=== PATIENT | male | born 1970 | race Caucasian/White ===

== ENCOUNTER → 2017-07-08 | Outpatient (CLI) | payer OTHER | LOC: MHCPAIN 10:40 | DX: G89.29 Other chronic pain (principal); M47.27 Other spondylosis with radiculopathy, lumbosacral region | CPT/HCPCS: G0463 ==

== ENCOUNTER → 2017-11-10 | Outpatient (CLI) | payer OTHER | LOC: MHCPAIN 13:01 | DX: G89.29 Other chronic pain (principal); M47.27 Other spondylosis with radiculopathy, lumbosacral region; M53.3 Sacrococcygeal disorders, not elsewhere classified | CPT/HCPCS: G0463 ==

== ENCOUNTER → 2017-12-10 | Outpatient (CLI) | payer OTHER | LOC: MHCPAIN 09:20 | DX: M47.817 Spondylosis without myelopathy or radiculopathy, lumbosacral region (principal) ==

== ENCOUNTER → 2017-12-16 | Outpatient (CLI) | payer OTHER | LOC: MHCPAIN 13:07 | DX: G89.29 Other chronic pain (principal); M47.817 Spondylosis without myelopathy or radiculopathy, lumbosacral region; M54.16 Radiculopathy, lumbar region; M53.3 Sacrococcygeal disorders, not elsewhere classified | CPT/HCPCS: G0463 ==

== ENCOUNTER → 2018-01-07 | Outpatient (CLI) | payer OTHER | LOC: MHCPAIN 10:26 | DX: M47.817 Spondylosis without myelopathy or radiculopathy, lumbosacral region (principal) ==

== ENCOUNTER → 2018-01-15 | Outpatient (CLI) | payer OTHER | LOC: MHCPAIN 10:20 | DX: G89.29 Other chronic pain (principal); M47.817 Spondylosis without myelopathy or radiculopathy, lumbosacral region; M54.16 Radiculopathy, lumbar region; M53.3 Sacrococcygeal disorders, not elsewhere classified | CPT/HCPCS: G0463 ==

== ENCOUNTER → 2018-02-11 | Outpatient (CLI) | payer OTHER | LOC: MHCPAIN 09:32 | DX: M47.817 Spondylosis without myelopathy or radiculopathy, lumbosacral region (principal); M46.96 Unspecified inflammatory spondylopathy, lumbar region | CPT/HCPCS: J1100; J2250; J3010 ==

== ENCOUNTER → 2018-03-11 | Outpatient (CLI) | payer OTHER | LOC: MHCPAIN 10:32 | DX: M47.817 Spondylosis without myelopathy or radiculopathy, lumbosacral region (principal) ==

== ENCOUNTER → 2018-03-17 | Outpatient (CLI) | payer OTHER | LOC: MHCPAIN 10:53 | DX: G89.29 Other chronic pain (principal); M47.817 Spondylosis without myelopathy or radiculopathy, lumbosacral region; M53.3 Sacrococcygeal disorders, not elsewhere classified; M54.16 Radiculopathy, lumbar region | CPT/HCPCS: G0463 ==

== ENCOUNTER → 2018-04-01 | Outpatient (CLI) | payer OTHER | LOC: MHCPAIN 11:53 | DX: M47.817 Spondylosis without myelopathy or radiculopathy, lumbosacral region (principal); M48.061 Spinal stenosis, lumbar region without neurogenic claudication | CPT/HCPCS: J1040; Q9967 ==

== ENCOUNTER → 2018-04-16 | Outpatient (CLI) | payer OTHER | LOC: MHCPAIN 11:33 | DX: G89.29 Other chronic pain (principal); M47.817 Spondylosis without myelopathy or radiculopathy, lumbosacral region; M54.16 Radiculopathy, lumbar region; M53.3 Sacrococcygeal disorders, not elsewhere classified | CPT/HCPCS: G0463 ==

== ENCOUNTER → 2019-02-16 | Outpatient (CLI) | payer OTHER | LOC: MHCPAIN 13:45 | DX: G89.29 Other chronic pain (principal); M47.817 Spondylosis without myelopathy or radiculopathy, lumbosacral region; M54.16 Radiculopathy, lumbar region; M53.3 Sacrococcygeal disorders, not elsewhere classified | CPT/HCPCS: G0463 ==

== ENCOUNTER → 2019-02-24 | Outpatient (CLI) | payer OTHER | LOC: MHCPAIN 10:04 | DX: M47.817 Spondylosis without myelopathy or radiculopathy, lumbosacral region (principal); M54.16 Radiculopathy, lumbar region | CPT/HCPCS: J1100; Q9967 ==

== ENCOUNTER → 2019-03-09 | Outpatient (CLI) | payer OTHER | LOC: MHCPAIN 12:59 | DX: G89.29 Other chronic pain (principal); M47.817 Spondylosis without myelopathy or radiculopathy, lumbosacral region; M54.16 Radiculopathy, lumbar region; M53.3 Sacrococcygeal disorders, not elsewhere classified | CPT/HCPCS: G0463 ==

== ENCOUNTER → 2019-03-17 | Outpatient (CLI) | payer OTHER | LOC: MHCPAIN 09:00 | DX: M47.817 Spondylosis without myelopathy or radiculopathy, lumbosacral region (principal); M54.16 Radiculopathy, lumbar region | CPT/HCPCS: J1100; Q9967 ==

== ENCOUNTER → 2019-04-20 | Outpatient (CLI) | payer OTHER | LOC: MHCPAIN 12:59 | DX: G89.29 Other chronic pain (principal); M47.817 Spondylosis without myelopathy or radiculopathy, lumbosacral region; M54.16 Radiculopathy, lumbar region; M53.3 Sacrococcygeal disorders, not elsewhere classified | CPT/HCPCS: G0463 ==

== ENCOUNTER → 2021-03-12 | Outpatient (CLI) | payer OTHER ==
[~2021-03-12] MED LIST: NAPROSYN500 MG PO; NEURONTIN600 MG/TAB PO; ZESTRIL 10MG10 MG PO; ZOCOR 40MG40 MG PO
== END ==
LOC: MHCPAIN 10:08
DX: M47.816 Spondylosis without myelopathy or radiculopathy, lumbar region (principal); M53.3 Sacrococcygeal disorders, not elsewhere classified; M79.2 Neuralgia and neuritis, unspecified; G89.29 Other chronic pain
CPT/HCPCS: G0463

== ENCOUNTER 2021-06-07 08:30 | Day surgery (SDC) | payer OTHER ==
[~2021-06-07] VITALS: Ht 177.8 cm; Wt 90.4 kg
[2021-06-07 10:01] VITALS: BP 129/87; PULSE 97; TEMP 97.9
[2021-06-07] MEDS ORDERED: NAPROSYN500 MG PO (10:04)
[2021-06-07] MEDS ORDERED: NEURONTIN600 MG/TAB PO (10:05)
[2021-06-07] MEDS ORDERED: ZOCOR 40MG40 MG PO (10:05)
[2021-06-07] MEDS ORDERED: ZESTRIL 10MG10 MG PO (10:06)
[2021-06-07 11:45] VITALS: BP 113/95; PULSE 84; TEMP 97.6
--- NOTE | 2021-06-07 11:45 | NUR ---
Patient returned to bay3 via cart, alert and oriented. Postop vitals started. Agrees to try tea and muffin. Will continue to monitor.
--- NOTE | 2021-06-07 11:52 | NUR ---
in to see pt
[2021-06-07 12:00] VITALS: BP 119/88; PULSE 72
--- NOTE | 2021-06-07 12:00 | NUR ---
Patient sitting up in chair, alert and oriented. Denies discomfort. Vital signs stable. Tolerating food and drink well.
[2021-06-07 12:15] VITALS: BP 118/89; PULSE 65
--- NOTE | 2021-06-07 12:15 | NUR ---
Pt sitting up in chair, alert and oriented. Tolertaing food and drink. Vitals stable. Reviewed D/C instructions, verbalized understanding. D/C IV with no complications. Instructed to dress and use call light when ready.
[2021-06-07 12:17] VITALS: BP 113/95; PULSE 83
--- NOTE | 2021-06-07 12:40 | NUR ---
Tranfered pt via wheelchair to personal vehicle accompanied by .
== END 2021-06-07 12:40 | disposition home or self-care (01) ==
LOC: SDCO 08:30
DX: Z12.11 Encounter for screening for malignant neoplasm of colon (principal); D12.2 Benign neoplasm of ascending colon; E78.5 Hyperlipidemia, unspecified; E55.9 Vitamin D deficiency, unspecified; G47.33 Obstructive sleep apnea (adult) (pediatric); I10 Essential (primary) hypertension; Z20.822 Contact with and (suspected) exposure to COVID-19; Z79.899 Other long term (current) drug therapy; Z99.89 Dependence on other enabling machines and devices
CPT/HCPCS: J2704; J7030

== ENCOUNTER → 2021-06-18 | Outpatient (CLI) | payer OTHER | LOC: MHCPAIN 12:21 | DX: M47.817 Spondylosis without myelopathy or radiculopathy, lumbosacral region (principal); M54.5 Low back pain; M53.3 Sacrococcygeal disorders, not elsewhere classified | CPT/HCPCS: G0463 ==

== ENCOUNTER → 2022-02-18 | Outpatient (CLI) | payer OTHER | LOC: MHCPAIN 14:16 | DX: M47.817 Spondylosis without myelopathy or radiculopathy, lumbosacral region (principal); M54.50 Low back pain, unspecified; M53.3 Sacrococcygeal disorders, not elsewhere classified | CPT/HCPCS: G0463 ==

== ENCOUNTER → 2022-03-06 | Outpatient (CLI) | payer OTHER | LOC: MHCPAIN 09:17 | DX: M47.817 Spondylosis without myelopathy or radiculopathy, lumbosacral region (principal); M54.50 Low back pain, unspecified; M53.3 Sacrococcygeal disorders, not elsewhere classified ==

== ENCOUNTER → 2022-03-20 | Outpatient (CLI) | payer OTHER | LOC: MHCPAIN 10:45 | DX: M47.817 Spondylosis without myelopathy or radiculopathy, lumbosacral region (principal); M54.50 Low back pain, unspecified; M53.3 Sacrococcygeal disorders, not elsewhere classified | CPT/HCPCS: G0463 ==

== ENCOUNTER → 2022-04-24 | Outpatient (CLI) | payer OTHER | LOC: MHCPAIN 08:16 | DX: M47.817 Spondylosis without myelopathy or radiculopathy, lumbosacral region (principal); M54.50 Low back pain, unspecified; M53.3 Sacrococcygeal disorders, not elsewhere classified | CPT/HCPCS: G0463; J1100; J2250; J3010 ==

== ENCOUNTER → 2022-06-24 | Outpatient (CLI) | payer OTHER | LOC: MHCPAIN 12:43 | DX: M47.896 Other spondylosis, lumbar region (principal); M53.3 Sacrococcygeal disorders, not elsewhere classified; G89.29 Other chronic pain | CPT/HCPCS: G0463 ==

== ENCOUNTER → 2023-08-13 | Outpatient (CLI) | payer OTHER | LOC: MHCPAIN 09:25 | DX: M47.817 Spondylosis without myelopathy or radiculopathy, lumbosacral region (principal); M54.50 Low back pain, unspecified | CPT/HCPCS: J0665; J2250; J3010 ==

== ENCOUNTER → 2024-02-15 | Outpatient (CLI) | payer OTHER | LOC: MHCPAIN 14:13 | DX: M54.50 Low back pain, unspecified (principal); M53.3 Sacrococcygeal disorders, not elsewhere classified; G89.29 Other chronic pain | CPT/HCPCS: G0463 ==

== ENCOUNTER 2024-07-26 06:53 | Day surgery (SDC) | payer OTHER ==
[2024-07-26] VITALS (11 sets, daily range): BP systolic 116–142; BP diastolic 71–88; PULSE 70–89; TEMP 98.6
[~2024-07-26] VITALS: Ht 177.8 cm; Wt 95.0 kg
[2024-07-26] MEDS ORDERED: 1/2 NS 1,000 ML IV SCH (07:15)
[2024-07-26 07:35] LABS: HEMATOCRIT 43.6 % (42.0-52.0); HEMOGLOBIN 15.5 g/dl (13.5-18.0); MEAN CELL VOLUME 93 fl (80.0-100.0); MEAN CORPUSCULAR HEMOGLOBIN 33 pg (27-31); MEAN CORPUSCULAR HGB CONC 36 g/dl (33.0-37.0); PLATELET COUNT 245 K/mm3 (130-400); RED BLOOD COUNT 4.68 M/mm3 (4.20-5.60); REDCELL DISTRIBUTION WIDTH-CV 11.8 % (11.5-14.5)
[2024-07-26] MEDS ORDERED: ASPIRIN 81M81 MG/TA2 PO (07:44)
[2024-07-26] MEDS ORDERED: TYLENOL 325MG325 MG PO (07:45)
[2024-07-26 07:51] LABS: INR 1.1 (0.8-3.0); PROTHROMBIN TIME 12.1 SECONDS (9.7-12.8)
[2024-07-26 07:54] LABS: PARTIAL THROMBOPLASTIN TIME 28.4 SECONDS (26.0-37.0)
[2024-07-26 07:55] LABS: CALCIUM 9.4 mg/dL (8.4-10.2); CREATININE, serum 1.09 mg/dL (0.72-1.25); POTASSIUM 4.2 mEq/L (3.5-4.5)
[2024-07-26] MEDS ORDERED: Nitroglycerin 2% Topical Oint 1 GM UD TD SCH (08:40)
[2024-07-26] MEDS ORDERED: niCARdipine (Cath Lab) 100 MCG/ML 10 ML VIAL IA SCH (09:26)
[2024-07-26] MEDS ORDERED: Midazolam 2 MG/2 ML VIAL IV SCH (09:57)
[2024-07-26] MEDS ORDERED: fentaNYL 50 MCG/ML 2 ML VIAL IV SCH (10:00)
[2024-07-26] MEDS ORDERED: Iohexol 350 - 100 ML VIAL INCOR ONE (10:07)
[2024-07-26] MEDS ORDERED: Heparin 1,000 UNITS/ML 10 ML Multi-Dose VIAL IV SCH (10:08)
[2024-07-26] MEDS ORDERED: Acetaminophen 325 MG TAB PO PRN (10:30)
--- NOTE | 2024-07-26 10:31 | NUR ---
Nirav is transferred back to express unit after LHC with DR. Olmstead. He is awake and alert, pwd with reg and unlabored respirations. TR band to rt wrist, cms intact distal. bs report and handoff of care to Jody CORTEZ.
[2024-07-26] MEDS ORDERED: COZAAR 50MG50 MG/TAB PO (10:48)
--- NOTE | 2024-07-26 14:42 | NUR ---
Pt ambulated to EU12 with a steady gait, accompanied by . Pt was scheduled for a [facility]. EKG done. IV started, labs drawn. Meds and HX reviewed with the pt. Consent for the procedure signed. Post procedure the pt came back to [facility]. Right radial wrist was assessed. The site was clean and dry. Offered the pt something to eat and drink. Pt accepted a coffee and a meal was ordered. The pt was bedrest for an hour post procedure. At the end of the second hour of recovery air was released for the radial band. 2-3 mls of air was released about every 15 minutes. The right radial site remained clean and dry. Once all the air was released from the radial band the site was cleaned and a band-aid was applied. The deflated radial band was reapplied as a reminder to limit extremity use. Discharge education and information was discussed with the pt. No questions at the time. The pts IV was dc'd and the site was wrapped with coban. The pt exited the unit by wheelchair accompanied by this nurse to their wifes car.
== END 2024-07-26 13:42 | disposition home or self-care (01) ==
LOC: COL.CAR 06:53
PROVIDERS: Internal Medicine Cardiovascular Disease
DX: R94.39 Abnormal result of other cardiovascular function study (principal); R07.9 Chest pain, unspecified; R06.02 Shortness of breath; Z95.820 Peripheral vascular angioplasty status with implants and grafts; Z87.891 Personal history of nicotine dependence
CPT/HCPCS: J1644; J2250; J2404; J3010; Q9967